=== PATIENT | male | born 1960 | race Caucasian/White ===

== ENCOUNTER 2023-11-28 16:40 | Inpatient (IN) | payer MEDICAID ==
[~2023-11-28] VITALS: Ht 190.5 cm; Wt 71.0 kg
[2023-11-28 18:50] LABS: EOSINOPHILS # (AUTO) 0.1 X10'3 (0-0.9); EOSINOPHILS % (AUTO) 0.4 % (0-6); LYMPHOCYTES # (AUTO) 1.2 X10'3 (1.1-4.8); MEAN PLATELET VOLUME 7.2 FL (7.4-10.4)
[2023-11-28 18:51] LABS: BASOPHILS % (AUTO) 0.3 % (0-1); HEMATOCRIT 47.3 % (42.0-52.0); LYMPHOCYTES % (AUTO) 8.7 % (21-51); MEAN CORPUSCULAR HEMOGLOBIN 31.7 PG (27.0-31.0); MEAN CORPUSCULAR HGB CONC 33.9 g/dL (33.0-36.5); MEAN CORPUSCULAR VOLUME 93.3 FL (78-98); MONOCYTES # (AUTO) 0.9 X10'3 (0-0.9); MONOCYTES % (AUTO) 6.8 % (2-12); NEUTROPHILS # (AUTO) 11.7 X10'3 (1.8-7.7); NEUTROPHILS % (AUTO) 83.8 % (42-75); PLATELET COUNT 844 X10'3 (140-440); RED BLOOD COUNT 5.07 X10'6 (4.70-6.10); RED CELL DISTRIBUTION WIDTH 15.7 % (11.5-14.5); WHITE BLOOD COUNT 13.9 X10'3 (4.5-11.0)
[2023-11-28 18:58] LABS: ALANINE AMINOTRANSFERASE 30 U/L (12-78); ALBUMIN 2.6 G/DL (3.4-5.0); ALBUMIN/GLOBULIN RATIO 0.7 (1.1-1.5); ALKALINE PHOSPHATASE 92 IU/L (46-116); ANION GAP 9 (8-16); ASPARTATE AMINO TRANSFERASE 29 U/L (10-37); BILIRUBIN,TOTAL 0.4 MG/DL (0.1-1.0); BLOOD UREA NITROGEN 8 MG/DL (7-18); CHLORIDE 101 MMOL/L (99-107); GLUCOSE 133 MG/DL (70-104); POTASSIUM 3.9 MMOL/L (3.5-5.1); SODIUM 134 MMOL/L (135-145); TOTAL CARBON DIOXIDE 23.6 MMOL/L (24-32); TOTAL PROTEIN 6.5 G/DL (6.4-8.2); eCRCL 156 ML/MIN; eGFR > 90 ML/MIN
[2023-11-28 19:00] LABS: LIPASE > 375 U/L (16-77)
[2023-11-28] MEDS ORDERED: ondansetron/PF 4mg/2ml inj IV ONE (19:30)
[2023-11-28] MEDS ORDERED: HYDROmorphone 1 mg/ml syringe IV ONE (19:30)
[2023-11-28 19:36] LABS: BILIRUBIN,URINE SMALL (Neg); CLARITY,URINE CLOUDY (Clear); GLUCOSE, URINE NEGATIVE (Neg); KETONES,URINE NEGATIVE (Neg); LEUKOCYTE ESTERASE ,URINE NEGATIVE (Neg); NITRITES, URINE NEGATIVE (Neg); OCCULT BLOOD,URINE NEGATIVE (Neg); PH,URINE 8.5 (4.8-8.0); PROTEIN,URINE 30 mg/dl (Neg); UROBILINOGEN,URINE 0.2 E.U/dL (0.2-1.0)
[2023-11-28] MEDS ORDERED: iohexol 300mg/ml 100ml inj. ONE (19:37)
[2023-11-28 19:49] LABS: ETHANOL < 10 MG/DL (<10); PRO BRAIN NATRIURETIC PEPTIDE 115 PG/ML (0-125)
[2023-11-28 19:51] LABS: COLOR,URINE DARK YELLOW (Yellow); UA COLLECTION TYPE NON-SPECIFIED
[2023-11-28 19:59] LABS: MUCUS STRANDS MANY /LPF (Neg); SQUAMOUS EPITHELIAL CELL,UR FEW /LPF (FEW)
[2023-11-28 20:02] LABS: CAL OXALATE CRYSTALS 4+ /HPF (NEGATIVE)
[2023-11-28 20:04] LABS: BACTERIA,URINE 1+ /HPF (Neg); RBC,URINE 0-2 /HPF (0-2); TRANSITIONAL EPI CELLS,URINE FEW /HPF; WBC,URINE 0-4 /HPF (0-4)
[2023-11-28] MEDS ORDERED: normal saline 1000ML IV soln IVB ONE (20:30)
[2023-11-28] MEDS ORDERED: ringers solution, lactated 1000ml IV soln IV ONE (20:30)
[2023-11-28 21:01] LABS: TOTAL CELLS COUNTED 100
[2023-11-28 21:02] LABS: PLATELET ESTIMATE INCREASED
[2023-11-28] MEDS ORDERED: diphenhydrAMINE 50 mg/ml inj IV PRN (21:50)
[2023-11-28] MEDS ORDERED: ondansetron 4mg rapidly disintigrating tab PO PRN (21:50)
[2023-11-28] MEDS ORDERED: acetaminophen 325mg tablet PO PRN ×2 (21:50)
[2023-11-28] MEDS ORDERED: morphine 2 MG/ML inj. syringe IV PRN (21:50)
[2023-11-28] MEDS: dextrose 5%-1/2 normal saline 1,000 ML IV SCH (21:50)
[2023-11-28] MEDS ORDERED: acetaminophen 650mg rectal suppository RC PRN (21:50)
[2023-11-28] MEDS ORDERED: ondansetron/PF 4mg/2ml inj IV PRN (21:50)
[2023-11-28] MEDS ORDERED: bisacodyl 10mg suppository rectal RC PRN (21:50)
[2023-11-28] MEDS ORDERED: HYDROcodone/acetaminophen 5mg/325mg tablet PO PRN (21:50)
[2023-11-28] MEDS ORDERED: mag hydrox/Alum hydrox/simeth 30ml oral suspension PO PRN (21:50)
[2023-11-28] MEDS ORDERED: magnesium hydroxide 30ml (MOM) UD suspension PO PRN (21:50)
[2023-11-28] MEDS ORDERED: diphenhydrAMINE 25mg capsule PO PRN (21:50)
[2023-11-28] MEDS ORDERED: metoclopramide 5 mg/ml inj IV PRN (21:50)
[2023-11-28] MEDS ORDERED: ringers solution, lacted 1,000 ML IV ONE (22:15)
[2023-11-28 22:35] LABS: URINE AMPHETAMINE SCREEN NEGATIVE (Neg); URINE BARBITUATE SCREEN NEGATIVE (Neg); URINE BENZODIAZEPINES SCREEN NEGATIVE (Neg); URINE CANNABINOID SCREEN POSITIVE (Neg); URINE COCAINE SCREEN NEGATIVE (Neg); URINE METHADONE SCREEN NEGATIVE (Neg); URINE OPIATE SCREEN NEGATIVE (Neg); URINE PHENCYCLIDINE SCREEN NEGATIVE (Neg)
[2023-11-28 22:35] LABS: HEMOGLOBIN A1C 5.2 % (4.5-6.2)
[2023-11-28 22:36] LABS: APTT 30 SECONDS (22-32); INR 1.1 INR; PROTHROMBIN TIME 11.9 SECONDS (9.0-12.0)
[2023-11-28 22:46] LABS: AMYLASE 400 U/L (25-115); CREATINE KINASE 22 U/L (39-308); MAGNESIUM 1.7 MG/DL (1.5-2.4); PHOSPHORUS 4.6 MG/DL (2.3-4.5); PRO BRAIN NATRIURETIC PEPTIDE 104 PG/ML (0-125); THYROID STIMULATING HORMONE 1.57 ulU/ml (0.34-4.50)
[2023-11-29] MEDS: morphine 2 MG/ML inj. syringe IV PRN ×4 (02:16→19:21)
[2023-11-29] MEDS: HYDROcodone/acetaminophen 10/325mg tab PO PRN ×2 (06:48→23:36)
[2023-11-29] MEDS: aspirin 81mg, enteric-coated 1 TAB TABLET.DR PO SCH (07:56)
[2023-11-29] MEDS: docusate sod 100mg capsule PO SCH ×2 (07:57→19:21)
[2023-11-29] MEDS: heparin, porcine 5000 units/ml vial SQ SCH ×2 (08:07→19:21)
[2023-11-29] MEDS: dextrose 5%-1/2 normal saline 1,000 ML IV SCH ×3 (08:41→19:22)
[2023-11-29] MEDS ORDERED: haloperidol 5mg tablet PO PRN (08:45)
[2023-11-29] MEDS ORDERED: LORazepam 2 mg/ml vial IV PRN (08:45)
[2023-11-29] MEDS: pantoprazole 40MG/NS 100ML BAG 100 ML IV SCH (08:46)
[2023-11-29] MEDS: nicotine 14mg patch - 24hr TD SCH (08:48)
[2023-11-29 10:45] LABS: BASOPHILS # (AUTO) 0.1 X10'3 (0-0.2); EOSINOPHILS # (AUTO) 0.2 X10'3 (0-0.9); EOSINOPHILS % (AUTO) 1.5 % (0-6); HEMOGLOBIN 14.5 g/dl (14.0-17.9); LYMPHOCYTES # (AUTO) 1.2 X10'3 (1.1-4.8); LYMPHOCYTES % (AUTO) 11.1 % (21-51); MEAN CORPUSCULAR HEMOGLOBIN 31.2 PG (27.0-31.0); MEAN CORPUSCULAR HGB CONC 32.3 g/dL (33.0-36.5); MEAN CORPUSCULAR VOLUME 96.6 FL (78-98); MEAN PLATELET VOLUME 6.9 FL (7.4-10.4); MONOCYTES # (AUTO) 1.1 X10'3 (0-0.9); MONOCYTES % (AUTO) 10.8 % (2-12); NEUTROPHILS % (AUTO) 75.6 % (42-75); PLATELET COUNT 617 X10'3 (140-440); RED BLOOD COUNT 4.65 X10'6 (4.70-6.10); RED CELL DISTRIBUTION WIDTH 15.8 % (11.5-14.5); WHITE BLOOD COUNT 10.6 X10'3 (4.5-11.0)
[2023-11-29 11:54] LABS: ALANINE AMINOTRANSFERASE 20 U/L (12-78); ALBUMIN 2.1 G/DL (3.4-5.0); ALBUMIN/GLOBULIN RATIO 0.7 (1.1-1.5); ALKALINE PHOSPHATASE 72 IU/L (46-116); ASPARTATE AMINO TRANSFERASE 24 U/L (10-37); BILIRUBIN,TOTAL 0.3 MG/DL (0.1-1.0); BLOOD UREA NITROGEN 7 MG/DL (7-18); BUN/CREATININE RATIO 15.6 (10.0-20.0); CALCIUM 8.1 MG/DL (8.5-10.1); CHLORIDE 101 MMOL/L (99-107); CREATININE 0.45 MG/DL (0.60-1.10); GLUCOSE 121 MG/DL (70-104); TOTAL CARBON DIOXIDE 23.2 MMOL/L (24-32); TOTAL PROTEIN 5.3 G/DL (6.4-8.2); eCRCL 173 ML/MIN; eGFR > 90 ML/MIN
[2023-11-29 11:55] LABS: ANION GAP 9 (8-16); CHOL/HDL RATIO 4.8 (0.00-4.99); CHOLESTEROL 101 MG/DL (0-200); HDL CHOLESTEROL 21 MG/DL (35-60); LDL CHOLESTEROL 62 MG/DL (50-100); SODIUM 133 MMOL/L (135-145); TRIGLYCERIDES 97 MG/DL (20-135)
[2023-11-29] MEDS: thiamine 100mg/ml 2ml inj. IV SCH (12:12)
[2023-11-29 18:00] VITALS: BP 100/61; PULSE 86; RESP 18; TEMP 98.9; O2SAT 96
[2023-11-29 20:00] VITALS: RESP 18; O2SAT 96
[2023-11-29 22:00] VITALS: BP 128/82; PULSE 94; RESP 18; TEMP 98.7; O2SAT 98
[2023-11-30] MEDS: dextrose 5%-1/2 normal saline 1,000 ML IV SCH ×3 (02:49→23:37)
[2023-11-30 05:00] LABS: BASOPHILS % (AUTO) 0.2 % (0-1); EOSINOPHILS # (AUTO) 0.4 X10'3 (0-0.9); MEAN PLATELET VOLUME 6.7 FL (7.4-10.4); MONOCYTES # (AUTO) 1.1 X10'3 (0-0.9); MONOCYTES % (AUTO) 12.1 % (2-12); PLATELET COUNT 639 X10'3 (140-440)
[2023-11-30 05:02] LABS: HEMATOCRIT 40.8 % (42.0-52.0); LYMPHOCYTES # (AUTO) 1.9 X10'3 (1.1-4.8); LYMPHOCYTES % (AUTO) 21.9 % (21-51); MEAN CORPUSCULAR HEMOGLOBIN 31.9 PG (27.0-31.0); MEAN CORPUSCULAR HGB CONC 34.2 g/dL (33.0-36.5); MEAN CORPUSCULAR VOLUME 93.1 FL (78-98); NEUTROPHILS # (AUTO) 5.5 X10'3 (1.8-7.7); NEUTROPHILS % (AUTO) 61.8 % (42-75); RED BLOOD COUNT 4.38 X10'6 (4.70-6.10); RED CELL DISTRIBUTION WIDTH 15.1 % (11.5-14.5); WHITE BLOOD COUNT 8.8 X10'3 (4.5-11.0)
[2023-11-30 05:09] LABS: INR 1.1 INR; PROTHROMBIN TIME 11.9 SECONDS (9.0-12.0)
[2023-11-30 05:16] LABS: ALANINE AMINOTRANSFERASE 23 U/L (12-78); ALBUMIN 2.1 G/DL (3.4-5.0); ALBUMIN/GLOBULIN RATIO 0.6 (1.1-1.5); ALKALINE PHOSPHATASE 76 IU/L (46-116); AMYLASE 211 U/L (25-115); ANION GAP 8 (8-16); ASPARTATE AMINO TRANSFERASE 26 U/L (10-37); BILIRUBIN,TOTAL 0.3 MG/DL (0.1-1.0); BLOOD UREA NITROGEN 5 MG/DL (7-18); BUN/CREATININE RATIO 11.4 (10.0-20.0); CALCIUM 8.1 MG/DL (8.5-10.1); CHLORIDE 104 MMOL/L (99-107); CREATININE 0.44 MG/DL (0.60-1.10); GLUCOSE 104 MG/DL (70-104); LIPASE 141 U/L (16-77); MAGNESIUM 1.9 MG/DL (1.5-2.4); PHOSPHORUS 3.5 MG/DL (2.3-4.5); POTASSIUM 3.8 MMOL/L (3.5-5.1); SODIUM 135 MMOL/L (135-145); TOTAL CARBON DIOXIDE 23.2 MMOL/L (24-32); TOTAL PROTEIN 5.7 G/DL (6.4-8.2); eCRCL 177 ML/MIN; eGFR > 90 ML/MIN
[2023-11-30] MEDS: HYDROcodone/acetaminophen 10/325mg tab PO PRN ×4 (05:28→23:33)
[2023-11-30 06:00] VITALS: BP 131/92; PULSE 79; RESP 14; TEMP 98.4; O2SAT 97
[2023-11-30] MEDS: pantoprazole 40MG/NS 100ML BAG 100 ML IV SCH (08:00)
[2023-11-30] MEDS: nicotine 14mg patch - 24hr TD SCH (08:55)
[2023-11-30] MEDS: thiamine 100mg/ml 2ml inj. IV SCH (08:55)
[2023-11-30] MEDS: heparin, porcine 5000 units/ml vial SQ SCH ×2 (08:56→19:35)
[2023-11-30] MEDS: docusate sod 100mg capsule PO SCH ×2 (08:57→19:33)
[2023-11-30] MEDS: aspirin 81mg, enteric-coated 1 TAB TABLET.DR PO SCH (08:57)
[2023-11-30] MEDS: folic acid 0.4mg tablet PO SCH (09:00)
[2023-11-30 10:00] VITALS: BP_SYST 131; BP_SYST 138; BP_DIAS 83; BP_DIAS 92; PULSE 79; PULSE 85; RESP 14; RESP 16; TEMP 98.3; TEMP 98.4; O2SAT 97
[2023-11-30 18:00] VITALS: BP 135/84; PULSE 95; RESP 18; TEMP 97.8; O2SAT 98
[2023-11-30 20:00] VITALS: RESP 18; O2SAT 98
[2023-11-30 22:00] VITALS: BP 163/101; PULSE 98; RESP 14; TEMP 97.7; O2SAT 99
[2023-12-01] MEDS: HYDROcodone/acetaminophen 10/325mg tab PO PRN ×4 (05:06→21:22)
[2023-12-01 05:39] LABS: INR 1.1 INR; PROTHROMBIN TIME 11.9 SECONDS (9.0-12.0)
[2023-12-01 05:41] LABS: BASOPHILS # (AUTO) 0.1 X10'3 (0-0.2); BASOPHILS % (AUTO) 0.9 % (0-1); LYMPHOCYTES # (AUTO) 1.5 X10'3 (1.1-4.8); MEAN PLATELET VOLUME 6.8 FL (7.4-10.4); MONOCYTES # (AUTO) 0.8 X10'3 (0-0.9); NEUTROPHILS # (AUTO) 7.1 X10'3 (1.8-7.7); RED CELL DISTRIBUTION WIDTH 15.1 % (11.5-14.5)
[2023-12-01 05:43] LABS: EOSINOPHILS # (AUTO) 0.3 X10'3 (0-0.9); EOSINOPHILS % (AUTO) 3.4 % (0-6); HEMATOCRIT 44.1 % (42.0-52.0); HEMOGLOBIN 14.9 g/dl (14.0-17.9); LYMPHOCYTES % (AUTO) 15.7 % (21-51); MEAN CORPUSCULAR HEMOGLOBIN 31.6 PG (27.0-31.0); MEAN CORPUSCULAR HGB CONC 33.7 g/dL (33.0-36.5); MEAN CORPUSCULAR VOLUME 93.8 FL (78-98); MONOCYTES % (AUTO) 7.9 % (2-12); NEUTROPHILS % (AUTO) 72.1 % (42-75); PLATELET COUNT 694 X10'3 (140-440); WHITE BLOOD COUNT 9.8 X10'3 (4.5-11.0)
[2023-12-01 05:57] LABS: ALANINE AMINOTRANSFERASE 22 U/L (12-78); ALBUMIN 2.2 G/DL (3.4-5.0); ALBUMIN/GLOBULIN RATIO 0.6 (1.1-1.5); ALKALINE PHOSPHATASE 75 IU/L (46-116); AMYLASE 304 U/L (25-115); ANION GAP 9 (8-16); ASPARTATE AMINO TRANSFERASE 21 U/L (10-37); BILIRUBIN,TOTAL 0.3 MG/DL (0.1-1.0); BLOOD UREA NITROGEN 4 MG/DL (7-18); CALCIUM 8.3 MG/DL (8.5-10.1); CHLORIDE 103 MMOL/L (99-107); GLUCOSE 114 MG/DL (70-104); LIPASE 321 U/L (16-77); MAGNESIUM 1.7 MG/DL (1.5-2.4); PHOSPHORUS 3.6 MG/DL (2.3-4.5); POTASSIUM 3.7 MMOL/L (3.5-5.1); SODIUM 137 MMOL/L (135-145); TOTAL CARBON DIOXIDE 25.1 MMOL/L (24-32); TOTAL PROTEIN 5.6 G/DL (6.4-8.2); eCRCL 156 ML/MIN; eGFR > 90 ML/MIN
[2023-12-01 06:00] VITALS: BP 141/94; PULSE 86; RESP 22; TEMP 97.7; O2SAT 99
[2023-12-01] MEDS: pantoprazole 40MG/NS 100ML BAG 100 ML IV SCH (07:35)
[2023-12-01] MEDS: thiamine 100mg/ml 2ml inj. IV SCH (07:35)
[2023-12-01] MEDS: folic acid 0.4mg tablet PO SCH (07:44)
[2023-12-01] MEDS: docusate sod 100mg capsule PO SCH ×2 (07:44→20:46)
[2023-12-01] MEDS: aspirin 81mg, enteric-coated 1 TAB TABLET.DR PO SCH (07:44)
[2023-12-01] MEDS: heparin, porcine 5000 units/ml vial SQ SCH ×2 (07:45→20:46)
[2023-12-01] MEDS: nicotine 14mg patch - 24hr TD SCH (07:45)
[2023-12-01 08:00] VITALS: RESP 16; O2SAT 97
[2023-12-01 10:00] VITALS: BP 149/81; PULSE 101; RESP 16; TEMP 97.2; O2SAT 99
[2023-12-01] MEDS ORDERED: DOCU100C40 PO (12:38)
[2023-12-01] MEDS ORDERED: LOP12.5T PO (12:38)
[2023-12-01] MEDS ORDERED: PANT-47 PO (12:38)
[2023-12-01 18:00] VITALS: BP 135/84; PULSE 93; RESP 16; TEMP 98.3; O2SAT 98
[2023-12-01 20:00] VITALS: RESP 16; O2SAT 98
[2023-12-01] MEDS: dextrose 5%-1/2 normal saline 1,000 ML IV SCH (20:47)
[2023-12-01 22:00] VITALS: BP 144/95; PULSE 86; RESP 14; TEMP 98.6; O2SAT 96
[2023-12-02] MEDS: HYDROcodone/acetaminophen 10/325mg tab PO PRN ×4 (02:07→21:12)
[2023-12-02] MEDS: dextrose 5%-1/2 normal saline 1,000 ML IV SCH ×2 (05:28→15:48)
[2023-12-02 06:48] VITALS: BP 137/92; PULSE 76; RESP 15; TEMP 98; O2SAT 99
[2023-12-02 06:50] LABS: BASOPHILS # (AUTO) 0.1 X10'3 (0-0.2); EOSINOPHILS # (AUTO) 0.6 X10'3 (0-0.9); HEMOGLOBIN 13.9 g/dl (14.0-17.9); LYMPHOCYTES # (AUTO) 1.5 X10'3 (1.1-4.8); NEUTROPHILS # (AUTO) 3.5 X10'3 (1.8-7.7); WHITE BLOOD COUNT 6.4 X10'3 (4.5-11.0)
[2023-12-02 06:53] LABS: BASOPHILS % (AUTO) 0.8 % (0-1); EOSINOPHILS % (AUTO) 9.5 % (0-6); HEMATOCRIT 41.9 % (42.0-52.0); LYMPHOCYTES % (AUTO) 23.3 % (21-51); MEAN CORPUSCULAR HEMOGLOBIN 30.9 PG (27.0-31.0); MEAN CORPUSCULAR HGB CONC 33.1 g/dL (33.0-36.5); MEAN CORPUSCULAR VOLUME 93.4 FL (78-98); MEAN PLATELET VOLUME 6.8 FL (7.4-10.4); MONOCYTES # (AUTO) 0.7 X10'3 (0-0.9); MONOCYTES % (AUTO) 11.5 % (2-12); NEUTROPHILS % (AUTO) 54.9 % (42-75); PLATELET COUNT 684 X10'3 (140-440); RED BLOOD COUNT 4.49 X10'6 (4.70-6.10); RED CELL DISTRIBUTION WIDTH 15.3 % (11.5-14.5)
[2023-12-02 07:02] LABS: INR 1.1 INR; PROTHROMBIN TIME 11.9 SECONDS (9.0-12.0)
[2023-12-02 07:18] LABS: ALANINE AMINOTRANSFERASE 17 U/L (12-78); ALBUMIN 2.2 G/DL (3.4-5.0); ALBUMIN/GLOBULIN RATIO 0.6 (1.1-1.5); ALKALINE PHOSPHATASE 80 IU/L (46-116); AMYLASE 136 U/L (25-115); ANION GAP 9 (8-16); ASPARTATE AMINO TRANSFERASE 23 U/L (10-37); BILIRUBIN,TOTAL 0.3 MG/DL (0.1-1.0); BLOOD UREA NITROGEN 2 MG/DL (7-18); BUN/CREATININE RATIO 4.1 (10.0-20.0); CALCIUM 8.4 MG/DL (8.5-10.1); CHLORIDE 105 MMOL/L (99-107); CREATININE 0.49 MG/DL (0.60-1.10); GLUCOSE 103 MG/DL (70-104); LIPASE 77 U/L (16-77); MAGNESIUM 1.8 MG/DL (1.5-2.4); PHOSPHORUS 4.1 MG/DL (2.3-4.5); POTASSIUM 3.6 MMOL/L (3.5-5.1); SODIUM 139 MMOL/L (135-145); TOTAL CARBON DIOXIDE 24.9 MMOL/L (24-32); TOTAL PROTEIN 5.8 G/DL (6.4-8.2); eCRCL 159 ML/MIN; eGFR > 90 ML/MIN
[2023-12-02] MEDS: heparin, porcine 5000 units/ml vial SQ SCH ×2 (07:34→20:00)
[2023-12-02] MEDS: thiamine 100mg/ml 2ml inj. IV SCH (07:34)
[2023-12-02] MEDS: nicotine 14mg patch - 24hr TD SCH (07:35)
[2023-12-02] MEDS: aspirin 81mg, enteric-coated 1 TAB TABLET.DR PO SCH (07:35)
[2023-12-02] MEDS: pantoprazole 40MG/NS 100ML BAG 100 ML IV SCH (07:35)
[2023-12-02] MEDS: folic acid 0.4mg tablet PO SCH (07:35)
[2023-12-02] MEDS: docusate sod 100mg capsule PO SCH ×2 (07:35→21:11)
[2023-12-02 08:55] VITALS: RESP 18; O2SAT 98
[2023-12-02 10:00] VITALS: BP 127/88; PULSE 73; RESP 19; TEMP 98.3; O2SAT 98
[2023-12-02] MEDS ORDERED: THI100I IV ×2 (12:20)
[2023-12-02] MEDS ORDERED: FOLI0.4T14 PO (12:20)
[2023-12-02] MEDS ORDERED: NICO-631 TD ×2 (12:20)
[2023-12-02 18:00] VITALS: BP 137/92; PULSE 76; RESP 12; TEMP 98; O2SAT 99
[2023-12-02 20:00] VITALS: RESP 16; O2SAT 72
[2023-12-02 22:00] VITALS: BP 129/92; PULSE 74; RESP 17; TEMP 97.9; O2SAT 98
[2023-12-03] MEDS: dextrose 5%-1/2 normal saline 1,000 ML IV SCH (03:01)
[2023-12-03] MEDS: HYDROcodone/acetaminophen 10/325mg tab PO PRN ×2 (03:05→08:02)
[2023-12-03 06:46] LABS: ALANINE AMINOTRANSFERASE 20 U/L (12-78); ALBUMIN 2.4 G/DL (3.4-5.0); ALBUMIN/GLOBULIN RATIO 0.6 (1.1-1.5); ALKALINE PHOSPHATASE 91 IU/L (46-116); AMYLASE 82 U/L (25-115); ANION GAP 5 (8-16); ASPARTATE AMINO TRANSFERASE 31 U/L (10-37); BILIRUBIN,TOTAL 0.3 MG/DL (0.1-1.0); BLOOD UREA NITROGEN 5 MG/DL (7-18); BUN/CREATININE RATIO 9.4 (10.0-20.0); CALCIUM 9.1 MG/DL (8.5-10.1); CHLORIDE 103 MMOL/L (99-107); CREATININE 0.53 MG/DL (0.60-1.10); GLUCOSE 109 MG/DL (70-104); LIPASE 44 U/L (16-77); MAGNESIUM 1.6 MG/DL (1.5-2.4); PHOSPHORUS 4.4 MG/DL (2.3-4.5); POTASSIUM 3.7 MMOL/L (3.5-5.1); SODIUM 136 MMOL/L (135-145); TOTAL CARBON DIOXIDE 27.6 MMOL/L (24-32); TOTAL PROTEIN 6.2 G/DL (6.4-8.2); eCRCL 147 ML/MIN; eGFR > 90 ML/MIN
[2023-12-03 06:47] LABS: INR 1.1 INR; PROTHROMBIN TIME 11.9 SECONDS (9.0-12.0)
[2023-12-03 07:00] VITALS: BP 147/92; PULSE 71; RESP 17; TEMP 98.2; O2SAT 98
[2023-12-03 07:12] LABS: HEMATOCRIT 41.9 % (42.0-52.0); HEMOGLOBIN 14.1 g/dl (14.0-17.9); MEAN CORPUSCULAR HEMOGLOBIN 31.3 PG (27.0-31.0); MEAN CORPUSCULAR HGB CONC 33.7 g/dL (33.0-36.5); MEAN CORPUSCULAR VOLUME 92.7 FL (78-98); MEAN PLATELET VOLUME 6.9 FL (7.4-10.4); PLATELET COUNT 677 X10'3 (140-440); RED BLOOD COUNT 4.51 X10'6 (4.70-6.10); RED CELL DISTRIBUTION WIDTH 15.4 % (11.5-14.5); WHITE BLOOD COUNT 6.2 X10'3 (4.5-11.0)
[2023-12-03] MEDS ORDERED: pantoprazole 40mg Tablet.DR PO SCH (07:30)
[2023-12-03] MEDS: heparin, porcine 5000 units/ml vial SQ SCH (07:53)
[2023-12-03] MEDS: thiamine 100mg/ml 2ml inj. IV SCH (07:53)
[2023-12-03] MEDS: folic acid 0.4mg tablet PO SCH (07:54)
[2023-12-03] MEDS: aspirin 81mg, enteric-coated 1 TAB TABLET.DR PO SCH (07:54)
[2023-12-03] MEDS: docusate sod 100mg capsule PO SCH (07:54)
[2023-12-03] MEDS: nicotine 14mg patch - 24hr TD SCH (08:00)
[2023-12-03 08:18] LABS: BURR CELLS 1+; ELLIPTOCYTES FEW; PLATELET ESTIMATE INCREASED; TOTAL CELLS COUNTED 100
[2023-12-03 08:20] LABS: SMUDGE CELLS 1+
[2023-12-03 09:14] VITALS: RESP 16; O2SAT 98
[2023-12-03 10:00] VITALS: BP 126/82; PULSE 74; RESP 15; TEMP 97.9; O2SAT 98
[2023-12-03] MEDS ORDERED: NICO-631 TD (10:15)
[2023-12-03] MEDS ORDERED: THI100I PO (10:15)
== END 2023-12-03 11:11 | disposition home or self-care (01) | DRG 282 ==
LOC: ER 16:41 → ED HOLD 21:53 → ORTHO 4S 11-29 07:46
PROVIDERS: ADMIT Family Medicine; ATTEND Family Medicine
PROC: BW211ZZ Computerized Tomography (CT Scan) of Abdomen and Pelvis using Low Osmolar Contrast (ICD-10-PCS; principal; 2023-11-28)
DX: K85.20 Alcohol induced acute pancreatitis without necrosis or infection (principal); R18.8 Other ascites; E88.09 Other disorders of plasma-protein metabolism, not elsewhere classified; E87.1 Hypo-osmolality and hyponatremia; D75.839 Thrombocytosis, unspecified; F12.10 Cannabis abuse, uncomplicated; F11.10 Opioid abuse, uncomplicated; Z72.0 Tobacco use; K44.9 Diaphragmatic hernia without obstruction or gangrene; F10.90 Alcohol use, unspecified, uncomplicated; Z71.6 Tobacco abuse counseling
CPT/HCPCS: 36415; 71045; 74018; 74177; 80053; 80061; 80305; 80320; 81001; 82150; 82550; 83036; 83615; 83690; 83735; 83880; 84100; 84145; 84443; 84484; 85007; 85025; 85610; 85730; 87081; 99285; C9113; G0378; J1170; J1644; J2060; J2270; J2405; J3411; J3490; J7030; J7042; J7120; Q9967

== ENCOUNTER → 2024-05-16 | Outpatient (CLI) | payer MEDICAID ==
[~2024-05-16] MED LIST: DOCU100C40 PO; FOLI0.4T14 PO; LOP12.5T PO; NICO-631 TD; PANT-47 PO; THI100I PO; iohexol 300mg/ml 100ml inj. ONE; iohexol 350MG/ML 100ml bottle IV ONE
[2024-05-16 10:15] LABS: ALANINE AMINOTRANSFERASE 20 U/L (12-78); ALBUMIN 3.7 G/DL (3.4-5.0); ALKALINE PHOSPHATASE 79 IU/L (46-116); ANION GAP 8 (8-16); ASPARTATE AMINO TRANSFERASE 14 U/L (10-37); BILIRUBIN,TOTAL 0.4 MG/DL (0.1-1.0); BLOOD UREA NITROGEN 10 MG/DL (7-18); BUN/CREATININE RATIO 13.9 (10.0-20.0); CALCIUM 9.4 MG/DL (8.5-10.1); CHLORIDE 104 MMOL/L (99-107); CREATININE 0.72 MG/DL (0.60-1.10); GLUCOSE 103 MG/DL (70-104); POTASSIUM 4.2 MMOL/L (3.5-5.1); SODIUM 139 MMOL/L (135-145); TOTAL CARBON DIOXIDE 27.4 MMOL/L (24-32); TOTAL PROTEIN 7.3 G/DL (6.4-8.2); eGFR > 90 ML/MIN
== END | disposition home or self-care (01) ==
LOC: RAD 08:58
PROVIDERS: ATTEND Internal Medicine Gastroenterology
DX: R19.5 Other fecal abnormalities (principal); Z13.89 Encounter for screening for other disorder; K85.90 Acute pancreatitis without necrosis or infection, unspecified; I70.0 Atherosclerosis of aorta
CPT/HCPCS: 36415; 74160; 80053; Q9967